=== PATIENT | male | born 1945 | race Caucasian/White ===

== ENCOUNTER 2018-06-12 14:29 | Inpatient (IN) | payer MEDICARE, BC ==
[~2018-06-12] VITALS: Ht 170.2 cm; Wt 52.5 kg
[~2018-06-12 14:29] MED LIST: ALBU8.5H5 INH; ALPR0.254 PO; AMIO200T PO; ATOR10TA9 PO; BUDE10.22 INH; CALC-666 PO; CALC1TAB76 PO; CEFD300C37 PO; CHOL5000 PO; CLOP75TA52 PO; DOXY100T PO; FOLI0.8T2 PO; HYDR12.517 PO; HYDR25TA6 PO; IBAN150T PO; LISI-167 PO; METO25TA35 PO; OMEP1CAP14 PO; PRED10TA PO; PRED50TA PO; PRED5TAB PO; TIOT18CA INH; TRAZ-137 PO
--- NOTE | 2018-06-12 14:44 | NUR ---
ASSUMED PT CARE. RECEIVED BEDSIDE REPORT FROM ANTHONY RENTERIA. PER REPORT PT WAS BIB AMBULANCE WITH C/O GLF.
--- NOTE | 2018-06-12 14:44 | NUR ---
73 Y/O MALE BIB AMBULANCE WITH C/O GLF. 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 I WAS WALKING TO THE CAR. WE WERE ON THE SECOND FLOOR AND THE FIRST ELEVATOR. I NEEDED TO STOP TO GET MORE AIR. WE WALKED A SHORT DISTANCE TO THE CAR THEN DOWN I WENT. 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 NO C/O N/V/D, CP
--- NOTE | 2018-06-12 14:55 | NUR ---
PT ALSO STATES "I DON'T REMEMBER IF I HIT MY HEAD OR NOT. I JUST WENT DOWN SO FAST." OBVIOUS ECCHYMOSIS ON BACK OF HEAD.
[2018-06-12 15:19] LABS: MEAN CORPUSCULAR HGB CONC 33.1 g/dL (33.2-36.2); MEAN CORPUSCULAR VOLUME 99.6 fL (81-97); MEAN PLATELET VOLUME 8.2 fL (7.4-10.4); PLATELET COUNT 280 x10^3/uL (130-400); RED BLOOD COUNT 4.32 x10^6/uL (4.38-5.82); RED CELL DISTRIBUTION WIDTH 16.9 % (9.4-14.8)
[2018-06-12 15:30] LABS: ALBUMIN 2.7 g/dL (3.4-5.0); ANION GAP 14 mmol/L (5-15); CALCIUM 7.7 mg/dL (8.5-10.1); CHLORIDE 98 mmol/L (98-107)
[2018-06-12 15:36] LABS: ALANINE AMINOTRANSFERASE 91 U/L (12-78); ALKALINE PHOSPHATASE 305 U/L (45-117); BILIRUBIN,TOTAL 1.4 mg/dL (0.2-1.0); CREATININE 1.95 mg/dL (0.7-1.3); TOTAL PROTEIN 6.3 g/dL (6.4-8.2)
[2018-06-12 15:38] LABS: TROPONIN I 0.022 ng/mL (0.000-0.045)
[2018-06-12 15:44] LABS: INTERNATIONAL NORMALIZED RATIO 1.56 (0.93-1.1); PROTHROMBIN TIME 16.3 Seconds (9.6-11.5)
[2018-06-12 15:59] LABS: MD YES
[2018-06-12 16:01] LABS: BAND#(MANUAL) 0.99 x10^3/uL; BANDS%(MANUAL) 7 % (0-7); LYMPH#(MANUAL) 1.41 x10^3/uL (1-3.4); LYMPHS% (MANUAL) 10 % (22-44); METAMYELOCYTES# (MANUAL) 0.14 x10^3/uL (0-0); METAMYELOCYTES% (MANUAL) 1 % (0-1); MONOS#(MANUAL) 0.42 x10^3/uL (0.3-2.7); MONOS% (MANUAL) 3 % (2-9); SEG#(MANUAL) 11.14 x10^3/uL (1.8-6.8); SEGS% (MANUAL) 79 % (42-75)
[2018-06-12 16:02] LABS: <PLATELET ESTIMATE> ADEQUATE; <PLT MORPHOLOGY> NORMAL PLT MORPH; ANISOCYTOSIS 1+; POLYCHROMASIA 1+; TOXIC GRAN 1+
--- NOTE | 2018-06-12 16:10 | NUR ---
PT TO IMAGING.
--- NOTE | 2018-06-12 16:10 | NUR ---
LATE ENTRY FOR 1600 PT RESTING ON [place]. NO ACUTE DISTRESS NOTED. NO NEEDS REQUESTED AT THIS TIME. VSS
--- NOTE | 2018-06-12 17:43 | NUR ---
TASK RN: PT REQUESTS WATER. DISCUSSED WITH TERESSA VIRK FOR PT TO HAVE PO FLUIDS
--- NOTE | 2018-06-12 18:59 | NUR ---
TASK RN: PT 02 SAT 82% ON 6L NC, OXY MASK 8L PLACED WITH EFFECT
[2018-06-12] MEDS ORDERED: PHARMACY MAY ADJ FOR RENAL FX MC PRN (19:00)
--- NOTE | 2018-06-12 19:09 | NUR ---
REPORT CALLED TO ANTHONY HUERTA. ALL QUESTIONS ANSWERED.
[2018-06-12] MEDS ORDERED: ALBUTEROL/IPRATROPIUM 2.5MG/0.5MG, 3 ML NPPB PRN (20:00)
[2018-06-12] MEDS: ALBUTEROL/IPRATROPIUM 2.5MG/0.5MG, 3 ML NPPB SCH (20:26)
[2018-06-12] MEDS: BUDESONIDE 0.5 MG/2 ML INHA NPPB SCH (20:26)
[2018-06-12] MEDS ORDERED: ALBUTEROL SULFATE 2.5 MG/3 ML NPPB PRN (20:30)
[2018-06-12] MEDS: SODIUM CHLORIDE 0.9% 1,000 ML IV SCH (20:50)
[2018-06-12] MEDS: CEFTRIAXONE PMX 1GM/50ML 50 ML IV SCH (20:50)
[2018-06-12] MEDS: TRAZODONE 100MG TABLET PO SCH (20:50)
[2018-06-12 21:00] VITALS: BP 114/58
[2018-06-12] MEDS ORDERED: METOPROLOL TARTRATE 25 MG TABLET PO SCH (21:00)
[2018-06-12] MEDS ORDERED: Budesonide/Formoterol Fumarate (Symbicort 80-4.5 Mcg Inhaler) INH SCH (21:00)
[2018-06-12] MEDS: AZITHROMYCIN 500 MG in SODIUM CHLORIDE 0.9% 250 ML IV SCH (21:30)
[2018-06-13 01:42] VITALS: BP 100/53
[2018-06-13] MEDS: ALBUTEROL/IPRATROPIUM 2.5MG/0.5MG, 3 ML NPPB SCH ×4 (01:45→19:57)
[2018-06-13 05:40] LABS: MEAN CORPUSCULAR HEMOGLOBIN 33.3 pg (27.5-34.5); MEAN CORPUSCULAR HGB CONC 33.2 g/dL (33.2-36.2); MEAN CORPUSCULAR VOLUME 100.5 fL (81-97); MEAN PLATELET VOLUME 8.4 fL (7.4-10.4); PLATELET COUNT 286 x10^3/uL (130-400); RED BLOOD COUNT 3.67 x10^6/uL (4.38-5.82); RED CELL DISTRIBUTION WIDTH 16.3 % (9.4-14.8)
[2018-06-13 05:43] LABS: ANION GAP 8 mmol/L (5-15); CALCIUM 7.3 mg/dL (8.5-10.1); CHLORIDE 100 mmol/L (98-107)
[2018-06-13 05:46] LABS: CREATININE 1.46 mg/dL (0.7-1.3)
[2018-06-13 06:20] LABS: BASOPHILS # (AUTO) 0.03 x10^3/uL (0-0.1); BASOPHILS % (AUTO) 0 % (0-1); EOSINOPHILS # (AUTO) 0.05 x10^3/uL (0-0.4); EOSINOPHILS % (AUTO) 0 % (1-7); LYMPHOCYTES # (AUTO) 1.51 x10^3/uL (1-3.4); LYMPHOCYTES % (AUTO) 11 % (22-44); MD SCAN; MONOCYTES % (AUTO) 3 % (2-9); NEUTROPHILS % (AUTO) 86 % (42-75)
[2018-06-13 07:00] VITALS: BP 105/50
[2018-06-13] MEDS: BUDESONIDE 0.5 MG/2 ML INHA NPPB SCH ×2 (07:26→19:57)
[2018-06-13 08:01] LABS: ALBUMIN 2.4 g/dL (3.4-5.0)
[2018-06-13 08:04] LABS: BILIRUBIN, DIRECT 0.4 mg/dL (0.1-0.2); BILIRUBIN,INDIRECT 0.6 mg/dL (0.0-2.0); TOTAL PROTEIN 5.6 g/dL (6.4-8.2)
[2018-06-13] MEDS ORDERED: Tiotropium Bromide** (Spiriva**) 18 MCG) INH SCH (09:00)
[2018-06-13] MEDS ORDERED: CLOPIDOGREL 75 MG TABLET PO SCH (09:00)
[2018-06-13] MEDS ORDERED: HYDROCHLOROTHIAZIDE 25 MG TABLET PO SCH (09:00)
[2018-06-13 09:21] LABS: RAPID INFLUENZA A Negative (Negative); RAPID INFLUENZA B Negative (Negative)
[2018-06-13] MEDS: POTASSIUM CHLORIDE 20 MEQ TAB.ER.PRT PO SCH ×2 (09:45→18:05)
[2018-06-13] MEDS: ATORVASTATIN 10 MG TABLET PO SCH (09:46)
[2018-06-13] MEDS: APIXABAN 5 MG TABLET PO SCH ×2 (09:46→19:50)
[2018-06-13] MEDS: FOLIC ACID 1 MG TABLET PO SCH (09:46)
[2018-06-13] MEDS: METOPROLOL TARTRATE 50 MG TABLET PO SCH (09:46)
[2018-06-13] MEDS: CALCIUM/VITAMIN D3 250-125 TABLET PO SCH (09:46)
[2018-06-13] MEDS: SODIUM CHLORIDE 0.9% 1,000 ML IV SCH (09:47)
[2018-06-13 12:20] VITALS: BP 109/61
[2018-06-13] MEDS ORDERED: BENZONATATE 100 MG CAPSULE PO PRN (18:30)
[2018-06-13] MEDS ORDERED: PROAIR PO PRN (18:30)
[2018-06-13 19:12] VITALS: BP 110/52
[2018-06-13] MEDS: TRAZODONE 100MG TABLET PO SCH (19:50)
[2018-06-13] MEDS: CEFTRIAXONE PMX 1GM/50ML 50 ML IV SCH (19:50)
[2018-06-13] MEDS: AZITHROMYCIN 500 MG in SODIUM CHLORIDE 0.9% 250 ML IV SCH (21:23)
[2018-06-14] MEDS: ALBUTEROL/IPRATROPIUM 2.5MG/0.5MG, 3 ML NPPB SCH ×4 (03:00→19:45)
[2018-06-14] MEDS: SODIUM CHLORIDE 0.9% 1,000 ML IV SCH (03:15)
[2018-06-14 03:49] VITALS: BP 116/58
[2018-06-14] MEDS: METOPROLOL TARTRATE 50 MG TABLET PO SCH (05:12)
[2018-06-14 05:35] LABS: BASOPHILS # (AUTO) 0.02 x10^3/uL (0-0.1); BASOPHILS % (AUTO) 0 % (0-1); EOSINOPHILS # (AUTO) 0.27 x10^3/uL (0-0.4); EOSINOPHILS % (AUTO) 2 % (1-7); LYMPHOCYTES # (AUTO) 0.88 x10^3/uL (1-3.4); LYMPHOCYTES % (AUTO) 8 % (22-44); MD NO; MEAN CORPUSCULAR HEMOGLOBIN 33.4 pg (27.5-34.5); MEAN CORPUSCULAR HGB CONC 33.1 g/dL (33.2-36.2); MEAN CORPUSCULAR VOLUME 100.8 fL (81-97); MEAN PLATELET VOLUME 8.2 fL (7.4-10.4); MONOCYTES # (AUTO) 0.33 x10^3/uL (0.2-0.8); MONOCYTES % (AUTO) 3 % (2-9); NEUTROPHILS # (AUTO) 9.94 x10^3/uL (1.8-6.8); NEUTROPHILS % (AUTO) 87 % (42-75); PLATELET COUNT 318 x10^3/uL (130-400); RED BLOOD COUNT 4.01 x10^6/uL (4.38-5.82); RED CELL DISTRIBUTION WIDTH 17.1 % (9.4-14.8)
[2018-06-14 05:41] LABS: ALBUMIN 2.3 g/dL (3.4-5.0); ANION GAP 7 mmol/L (5-15); CALCIUM 7.8 mg/dL (8.5-10.1); CHLORIDE 105 mmol/L (98-107)
[2018-06-14 05:46] LABS: ALANINE AMINOTRANSFERASE 62 U/L (12-78); ALKALINE PHOSPHATASE 238 U/L (45-117); CREATININE 1.12 mg/dL (0.7-1.3); TOTAL PROTEIN 5.9 g/dL (6.4-8.2)
[2018-06-14 07:00] VITALS: BP 121/62
[2018-06-14] MEDS: BUDESONIDE 0.5 MG/2 ML INHA NPPB SCH ×2 (07:27→19:45)
[2018-06-14] MEDS: FOLIC ACID 1 MG TABLET PO SCH (09:20)
[2018-06-14] MEDS: APIXABAN 5 MG TABLET PO SCH ×2 (09:20→20:22)
[2018-06-14] MEDS: DOXYCYCLINE 100 MG in DEXTROSE 5% 250 ML IV SCH ×2 (09:20→22:27)
[2018-06-14] MEDS: TAMSULOSIN 0.4 MG CAP.ER.24H PO SCH (09:20)
[2018-06-14] MEDS: CALCIUM/VITAMIN D3 250-125 TABLET PO SCH (09:20)
[2018-06-14] MEDS: ATORVASTATIN 10 MG TABLET PO SCH (09:20)
[2018-06-14] MEDS ORDERED: MAGNESIUM SULFATE PMX 2GM/50ML 50 ML IV ONE (10:30)
[2018-06-14 13:05] VITALS: BP 121/62
[2018-06-14 19:19] VITALS: BP 127/70
[2018-06-14] MEDS: CEFTRIAXONE PMX 1GM/50ML 50 ML IV SCH (20:22)
[2018-06-14] MEDS: TRAZODONE 100MG TABLET PO SCH (20:22)
[2018-06-15 01:32] VITALS: BP 120/64
[2018-06-15 05:33] LABS: BASOPHILS # (AUTO) 0.02 x10^3/uL (0-0.1); BASOPHILS % (AUTO) 0 % (0-1); EOSINOPHILS # (AUTO) 0.31 x10^3/uL (0-0.4); EOSINOPHILS % (AUTO) 3 % (1-7); LYMPHOCYTES # (AUTO) 1.33 x10^3/uL (1-3.4); LYMPHOCYTES % (AUTO) 12 % (22-44); MD NO; MEAN CORPUSCULAR HEMOGLOBIN 34.1 pg (27.5-34.5); MEAN CORPUSCULAR HGB CONC 33.7 g/dL (33.2-36.2); MEAN CORPUSCULAR VOLUME 101.1 fL (81-97); MEAN PLATELET VOLUME 7.9 fL (7.4-10.4); MONOCYTES # (AUTO) 0.52 x10^3/uL (0.2-0.8); MONOCYTES % (AUTO) 5 % (2-9); NEUTROPHILS # (AUTO) 8.61 x10^3/uL (1.8-6.8); NEUTROPHILS % (AUTO) 80 % (42-75); PLATELET COUNT 304 x10^3/uL (130-400); RED BLOOD COUNT 3.45 x10^6/uL (4.38-5.82); RED CELL DISTRIBUTION WIDTH 16.4 % (9.4-14.8)
[2018-06-15 05:34] LABS: ALANINE AMINOTRANSFERASE 50 U/L (12-78); ALBUMIN 2.1 g/dL (3.4-5.0); ANION GAP 8 mmol/L (5-15); CALCIUM 7.9 mg/dL (8.5-10.1); CHLORIDE 104 mmol/L (98-107)
[2018-06-15 05:36] LABS: ALKALINE PHOSPHATASE 187 U/L (45-117); BILIRUBIN,TOTAL 0.8 mg/dL (0.2-1.0); CREATININE 1.05 mg/dL (0.7-1.3); TOTAL PROTEIN 5.2 g/dL (6.4-8.2)
[2018-06-15] MEDS: METOPROLOL TARTRATE 50 MG TABLET PO SCH (05:39)
[2018-06-15] MEDS: ALBUTEROL/IPRATROPIUM 2.5MG/0.5MG, 3 ML NPPB SCH ×4 (07:00→20:44)
[2018-06-15 07:15] VITALS: BP 116/63
[2018-06-15] MEDS: BUDESONIDE 0.5 MG/2 ML INHA NPPB SCH ×2 (07:18→20:44)
[2018-06-15] MEDS: TAMSULOSIN 0.4 MG CAP.ER.24H PO SCH (07:50)
[2018-06-15] MEDS: ATORVASTATIN 10 MG TABLET PO SCH (07:50)
[2018-06-15] MEDS: FOLIC ACID 1 MG TABLET PO SCH (07:50)
[2018-06-15] MEDS: APIXABAN 5 MG TABLET PO SCH ×2 (07:51→20:13)
[2018-06-15] MEDS: CALCIUM/VITAMIN D3 250-125 TABLET PO SCH (07:51)
[2018-06-15] MEDS: DOXYCYCLINE 100 MG in DEXTROSE 5% 250 ML IV SCH ×2 (09:23→21:39)
[2018-06-15] MEDS: methylPREDNISolone SOD SUCC 125 MG/2 ML IVPush SCH ×2 (10:41→22:40)
[2018-06-15 13:35] VITALS: BP 127/63
[2018-06-15] MEDS: ACETYLCYSTEINE 20%, 4ML NPPB SCH ×2 (14:12→20:45)
[2018-06-15 19:14] VITALS: BP 134/72
[2018-06-15] MEDS: GUAIFENESIN ER 600 MG TABLET PO SCH (20:13)
[2018-06-15] MEDS: CEFTRIAXONE PMX 1GM/50ML 50 ML IV SCH (20:13)
[2018-06-15] MEDS: TRAZODONE 100MG TABLET PO SCH (20:13)
[2018-06-16 00:50] VITALS: BP 132/69
[2018-06-16 05:07] VITALS: BP 142/68
[2018-06-16] MEDS: METOPROLOL TARTRATE 50 MG TABLET PO SCH (05:09)
[2018-06-16] MEDS: ACETYLCYSTEINE 20%, 4ML NPPB SCH ×4 (07:00→20:23)
[2018-06-16] MEDS: ALBUTEROL/IPRATROPIUM 2.5MG/0.5MG, 3 ML NPPB SCH ×4 (07:00→20:23)
[2018-06-16 07:05] VITALS: BP 159/74
[2018-06-16] MEDS: BUDESONIDE 0.5 MG/2 ML INHA NPPB SCH ×2 (07:10→20:23)
[2018-06-16] MEDS: FOLIC ACID 1 MG TABLET PO SCH (08:30)
[2018-06-16] MEDS: ATORVASTATIN 10 MG TABLET PO SCH (08:30)
[2018-06-16] MEDS: APIXABAN 5 MG TABLET PO SCH ×2 (08:30→20:57)
[2018-06-16] MEDS: methylPREDNISolone SOD SUCC 125 MG/2 ML IVPush SCH ×2 (08:30→17:40)
[2018-06-16] MEDS: TAMSULOSIN 0.4 MG CAP.ER.24H PO SCH (08:31)
[2018-06-16] MEDS: POTASSIUM CHLORIDE 20 MEQ TAB.ER.PRT PO SCH (08:31)
[2018-06-16] MEDS: GUAIFENESIN ER 600 MG TABLET PO SCH ×2 (08:31→20:58)
[2018-06-16] MEDS: CALCIUM/VITAMIN D3 250-125 TABLET PO SCH (08:31)
[2018-06-16] MEDS ORDERED: FUROSEMIDE 20 MG/2 ML IV SCH (09:00)
[2018-06-16] MEDS: DOXYCYCLINE 100 MG in DEXTROSE 5% 250 ML IV SCH ×2 (09:58→21:45)
[2018-06-16 19:47] VITALS: BP 147/72
[2018-06-16] MEDS: TRAZODONE 100MG TABLET PO SCH (20:58)
[2018-06-16] MEDS: CEFTRIAXONE PMX 1GM/50ML 50 ML IV SCH (20:58)
[2018-06-16] MEDS: FUROSEMIDE 20 MG/2 ML IV SCH (20:58)
[2018-06-17] MEDS: methylPREDNISolone SOD SUCC 125 MG/2 ML IVPush SCH ×3 (00:19→16:00)
[2018-06-17 02:17] VITALS: BP 135/70
[2018-06-17 05:30] VITALS: BP 139/69
[2018-06-17] MEDS: METOPROLOL TARTRATE 50 MG TABLET PO SCH (05:32)
[2018-06-17 05:54] LABS: CHLORIDE 100 mmol/L (98-107)
[2018-06-17 06:00] LABS: ALANINE AMINOTRANSFERASE 62 U/L (12-78); ALBUMIN 2.6 g/dL (3.4-5.0); ALKALINE PHOSPHATASE 198 U/L (45-117); ANION GAP 8 mmol/L (5-15); BILIRUBIN,TOTAL 0.9 mg/dL (0.2-1.0); CREATININE 1.15 mg/dL (0.7-1.3); TOTAL PROTEIN 6.2 g/dL (6.4-8.2)
[2018-06-17 06:03] LABS: BASOPHILS % (AUTO) 0 % (0-1); EOSINOPHILS # (AUTO) 0.08 x10^3/uL (0-0.4); EOSINOPHILS % (AUTO) 1 % (1-7); LYMPHOCYTES # (AUTO) 0.85 x10^3/uL (1-3.4); LYMPHOCYTES % (AUTO) 9 % (22-44); MD NO; MEAN CORPUSCULAR HGB CONC 33.6 g/dL (33.2-36.2); MEAN CORPUSCULAR VOLUME 101.3 fL (81-97); MEAN PLATELET VOLUME 7.9 fL (7.4-10.4); MONOCYTES # (AUTO) 0.16 x10^3/uL (0.2-0.8); MONOCYTES % (AUTO) 2 % (2-9); NEUTROPHILS # (AUTO) 8.71 x10^3/uL (1.8-6.8); NEUTROPHILS % (AUTO) 89 % (42-75); PLATELET COUNT 367 x10^3/uL (130-400); RED BLOOD COUNT 4.15 x10^6/uL (4.38-5.82); RED CELL DISTRIBUTION WIDTH 16.8 % (9.4-14.8)
[2018-06-17] MEDS: ALBUTEROL/IPRATROPIUM 2.5MG/0.5MG, 3 ML NPPB SCH ×4 (06:32→19:36)
[2018-06-17] MEDS: ACETYLCYSTEINE 20%, 4ML NPPB SCH ×4 (06:33→19:36)
[2018-06-17] MEDS: BUDESONIDE 0.5 MG/2 ML INHA NPPB SCH ×2 (06:33→19:36)
[2018-06-17 07:40] VITALS: BP 133/70
[2018-06-17] MEDS: DOXYCYCLINE 100 MG in DEXTROSE 5% 250 ML IV SCH ×2 (09:00→21:47)
[2018-06-17] MEDS: POTASSIUM CHLORIDE 20 MEQ TAB.ER.PRT PO SCH (09:01)
[2018-06-17] MEDS: FUROSEMIDE 20 MG/2 ML IV SCH ×2 (09:01→20:54)
[2018-06-17] MEDS: APIXABAN 5 MG TABLET PO SCH ×2 (09:01→20:54)
[2018-06-17] MEDS: FOLIC ACID 1 MG TABLET PO SCH (09:01)
[2018-06-17] MEDS: CALCIUM/VITAMIN D3 250-125 TABLET PO SCH (09:01)
[2018-06-17] MEDS: GUAIFENESIN ER 600 MG TABLET PO SCH ×2 (09:01→20:54)
[2018-06-17] MEDS: TAMSULOSIN 0.4 MG CAP.ER.24H PO SCH (09:02)
[2018-06-17] MEDS: ATORVASTATIN 10 MG TABLET PO SCH (09:02)
[2018-06-17 13:44] VITALS: BP 107/57
[2018-06-17 19:51] VITALS: BP 105/57
[2018-06-17] MEDS: CEFTRIAXONE PMX 1GM/50ML 50 ML IV SCH (20:54)
[2018-06-17] MEDS: TRAZODONE 100MG TABLET PO SCH (20:54)
[2018-06-18 01:19] VITALS: BP 122/61
[2018-06-18] MEDS: methylPREDNISolone SOD SUCC 125 MG/2 ML IVPush SCH ×3 (01:30→17:34)
[2018-06-18 05:35] VITALS: BP 103/54
[2018-06-18] MEDS: METOPROLOL TARTRATE 50 MG TABLET PO SCH (05:35)
[2018-06-18] MEDS: ACETYLCYSTEINE 20%, 4ML NPPB SCH ×3 (07:00→14:18)
[2018-06-18] MEDS: ALBUTEROL/IPRATROPIUM 2.5MG/0.5MG, 3 ML NPPB SCH ×4 (07:00→19:28)
[2018-06-18] MEDS: BUDESONIDE 0.5 MG/2 ML INHA NPPB SCH ×2 (07:23→19:29)
[2018-06-18 08:04] VITALS: BP 102/41
[2018-06-18] MEDS: APIXABAN 5 MG TABLET PO SCH ×2 (08:53→20:56)
[2018-06-18] MEDS: ATORVASTATIN 10 MG TABLET PO SCH (08:53)
[2018-06-18] MEDS: POTASSIUM CHLORIDE 20 MEQ TAB.ER.PRT PO SCH (08:53)
[2018-06-18] MEDS: CALCIUM/VITAMIN D3 250-125 TABLET PO SCH (08:53)
[2018-06-18] MEDS: GUAIFENESIN ER 600 MG TABLET PO SCH ×2 (08:53→20:56)
[2018-06-18] MEDS: FOLIC ACID 1 MG TABLET PO SCH (08:53)
[2018-06-18] MEDS: TAMSULOSIN 0.4 MG CAP.ER.24H PO SCH (08:53)
[2018-06-18] MEDS: DOXYCYCLINE 100 MG in DEXTROSE 5% 250 ML IV SCH ×2 (08:53→22:08)
[2018-06-18] MEDS: FUROSEMIDE 20 MG/2 ML IV SCH ×2 (08:54→20:56)
[2018-06-18 15:54] VITALS: BP 101/58
[2018-06-18 19:56] VITALS: BP 102/43
[2018-06-18] MEDS: TRAZODONE 100MG TABLET PO SCH (20:56)
[2018-06-18] MEDS: CEFTRIAXONE PMX 1GM/50ML 50 ML IV SCH (20:56)
[2018-06-19 00:34] VITALS: BP 123/66
[2018-06-19] MEDS: methylPREDNISolone SOD SUCC 125 MG/2 ML IVPush SCH ×3 (00:37→16:27)
[2018-06-19] MEDS: METOPROLOL TARTRATE 50 MG TABLET PO SCH (06:29)
[2018-06-19] MEDS: ALBUTEROL/IPRATROPIUM 2.5MG/0.5MG, 3 ML NPPB SCH ×4 (07:00→20:55)
[2018-06-19 07:16] VITALS: BP 127/63
[2018-06-19] MEDS: BUDESONIDE 0.5 MG/2 ML INHA NPPB SCH ×2 (07:47→20:55)
[2018-06-19] MEDS: POTASSIUM CHLORIDE 20 MEQ TAB.ER.PRT PO SCH (09:00)
[2018-06-19] MEDS: GUAIFENESIN ER 600 MG TABLET PO SCH ×2 (09:00→21:41)
[2018-06-19] MEDS: DOXYCYCLINE 100MG TABLET PO SCH ×2 (09:00→21:41)
[2018-06-19] MEDS: ATORVASTATIN 10 MG TABLET PO SCH (09:00)
[2018-06-19] MEDS: APIXABAN 5 MG TABLET PO SCH ×2 (09:00→21:41)
[2018-06-19] MEDS: SULFAMETH./TRIMETHOPRIM DS 800MG/160MG TABLET PO SCH ×2 (09:00→21:41)
[2018-06-19] MEDS: AMOXICILLIN/CLAV 875-125MG TABLET PO SCH ×2 (09:00→21:41)
[2018-06-19] MEDS: TAMSULOSIN 0.4 MG CAP.ER.24H PO SCH (09:01)
[2018-06-19] MEDS: FUROSEMIDE 20 MG/2 ML IV SCH ×2 (09:01→21:42)
[2018-06-19] MEDS: FOLIC ACID 1 MG TABLET PO SCH (09:01)
[2018-06-19] MEDS: CALCIUM/VITAMIN D3 250-125 TABLET PO SCH (09:01)
[2018-06-19 12:28] VITALS: BP 116/55
[2018-06-19 20:36] VITALS: BP 130/66
[2018-06-19] MEDS: TRAZODONE 100MG TABLET PO SCH (21:41)
[2018-06-20] MEDS: methylPREDNISolone SOD SUCC 125 MG/2 ML IVPush SCH ×4 (00:31→23:50)
[2018-06-20 01:58] VITALS: BP 124/62
[2018-06-20 06:14] VITALS: BP 112/74
[2018-06-20] MEDS: METOPROLOL TARTRATE 50 MG TABLET PO SCH (06:15)
[2018-06-20] MEDS: BUDESONIDE 0.5 MG/2 ML INHA NPPB SCH ×2 (07:38→20:23)
[2018-06-20] MEDS: ALBUTEROL/IPRATROPIUM 2.5MG/0.5MG, 3 ML NPPB SCH ×4 (07:38→20:00)
[2018-06-20 08:26] VITALS: BP 121/52
[2018-06-20] MEDS: POTASSIUM CHLORIDE 20 MEQ TAB.ER.PRT PO SCH (09:03)
[2018-06-20] MEDS: FUROSEMIDE 20 MG/2 ML IV SCH ×2 (09:03→21:33)
[2018-06-20] MEDS: AMOXICILLIN/CLAV 875-125MG TABLET PO SCH ×2 (09:03→22:00)
[2018-06-20] MEDS: ATORVASTATIN 10 MG TABLET PO SCH (09:04)
[2018-06-20] MEDS: APIXABAN 5 MG TABLET PO SCH ×2 (09:04→21:32)
[2018-06-20] MEDS: TAMSULOSIN 0.4 MG CAP.ER.24H PO SCH (09:04)
[2018-06-20] MEDS: FOLIC ACID 1 MG TABLET PO SCH (09:04)
[2018-06-20] MEDS: DOXYCYCLINE 100MG TABLET PO SCH ×2 (09:04→21:32)
[2018-06-20] MEDS: GUAIFENESIN ER 600 MG TABLET PO SCH ×2 (09:04→21:32)
[2018-06-20] MEDS: SULFAMETH./TRIMETHOPRIM DS 800MG/160MG TABLET PO SCH ×2 (09:04→21:32)
[2018-06-20] MEDS: CALCIUM/VITAMIN D3 250-125 TABLET PO SCH (09:04)
[2018-06-20 13:06] VITALS: BP 116/63
[2018-06-20] MEDS: TRAZODONE 100MG TABLET PO SCH (21:32)
[2018-06-20 21:53] VITALS: BP 122/43
[2018-06-21 02:19] VITALS: BP 131/67
[2018-06-21] MEDS: METOPROLOL TARTRATE 50 MG TABLET PO SCH (05:42)
[2018-06-21 07:25] VITALS: BP 123/59
[2018-06-21] MEDS: ALBUTEROL/IPRATROPIUM 2.5MG/0.5MG, 3 ML NPPB SCH ×4 (08:11→19:25)
[2018-06-21] MEDS: BUDESONIDE 0.5 MG/2 ML INHA NPPB SCH ×2 (08:11→19:25)
[2018-06-21] MEDS: FUROSEMIDE 20 MG/2 ML IV SCH (09:44)
[2018-06-21] MEDS: AMOXICILLIN/CLAV 875-125MG TABLET PO SCH ×2 (09:44→21:40)
[2018-06-21] MEDS: FOLIC ACID 1 MG TABLET PO SCH (09:44)
[2018-06-21] MEDS: POTASSIUM CHLORIDE 20 MEQ TAB.ER.PRT PO SCH (09:44)
[2018-06-21] MEDS: TAMSULOSIN 0.4 MG CAP.ER.24H PO SCH (09:44)
[2018-06-21] MEDS: methylPREDNISolone SOD SUCC 125 MG/2 ML IVPush SCH (09:44)
[2018-06-21] MEDS: APIXABAN 5 MG TABLET PO SCH ×2 (09:44→21:40)
[2018-06-21] MEDS: GUAIFENESIN ER 600 MG TABLET PO SCH ×2 (09:45→21:40)
[2018-06-21] MEDS: DOXYCYCLINE 100MG TABLET PO SCH ×2 (09:45→21:40)
[2018-06-21] MEDS: ATORVASTATIN 10 MG TABLET PO SCH (09:45)
[2018-06-21] MEDS: CALCIUM/VITAMIN D3 250-125 TABLET PO SCH (09:45)
[2018-06-21] MEDS: SULFAMETH./TRIMETHOPRIM DS 800MG/160MG TABLET PO SCH ×2 (09:45→21:40)
[2018-06-21 14:00] VITALS: BP 93/60
[2018-06-21 15:02] VITALS: BP 113/57
[2018-06-21] MEDS: TRAZODONE 100MG TABLET PO SCH (21:41)
[2018-06-21 21:59] VITALS: BP 104/46
[2018-06-22 03:59] VITALS: BP 114/62
[2018-06-22 05:20] VITALS: BP 116/60
[2018-06-22] MEDS: METOPROLOL TARTRATE 50 MG TABLET PO SCH (05:22)
[2018-06-22 05:24] LABS: BASOPHILS % (AUTO) 0 % (0-1); EOSINOPHILS # (AUTO) 0.15 x10^3/uL (0-0.4); EOSINOPHILS % (AUTO) 2 % (1-7); LYMPHOCYTES # (AUTO) 0.69 x10^3/uL (1-3.4); LYMPHOCYTES % (AUTO) 8 % (22-44); MD NO; MEAN CORPUSCULAR HEMOGLOBIN 33.8 pg (27.5-34.5); MEAN CORPUSCULAR HGB CONC 33.5 g/dL (33.2-36.2); MEAN CORPUSCULAR VOLUME 100.9 fL (81-97); MEAN PLATELET VOLUME 8.2 fL (7.4-10.4); MONOCYTES # (AUTO) 0.33 x10^3/uL (0.2-0.8); MONOCYTES % (AUTO) 4 % (2-9); NEUTROPHILS % (AUTO) 87 % (42-75); PLATELET COUNT 322 x10^3/uL (130-400); RED BLOOD COUNT 3.83 x10^6/uL (4.38-5.82); RED CELL DISTRIBUTION WIDTH 16.1 % (9.4-14.8)
[2018-06-22 05:31] LABS: CHLORIDE 98 mmol/L (98-107)
[2018-06-22 05:39] LABS: ALANINE AMINOTRANSFERASE 62 U/L (12-78); ALBUMIN 2.6 g/dL (3.4-5.0); ALKALINE PHOSPHATASE 122 U/L (45-117); ANION GAP 5 mmol/L (5-15); BILIRUBIN,TOTAL 0.9 mg/dL (0.2-1.0); CALCIUM 7.2 mg/dL (8.5-10.1); CREATININE 1.26 mg/dL (0.7-1.3); TOTAL PROTEIN 5.5 g/dL (6.4-8.2)
[2018-06-22 08:04] VITALS: BP 113/50
[2018-06-22] MEDS: DOXYCYCLINE 100MG TABLET PO SCH ×2 (08:32→19:53)
[2018-06-22] MEDS: SULFAMETH./TRIMETHOPRIM DS 800MG/160MG TABLET PO SCH ×2 (08:32→19:53)
[2018-06-22] MEDS: POTASSIUM CHLORIDE 20 MEQ TAB.ER.PRT PO SCH (08:32)
[2018-06-22] MEDS: GUAIFENESIN ER 600 MG TABLET PO SCH ×2 (08:32→19:53)
[2018-06-22] MEDS: FOLIC ACID 1 MG TABLET PO SCH (08:32)
[2018-06-22] MEDS: AMOXICILLIN/CLAV 875-125MG TABLET PO SCH ×2 (08:32→19:53)
[2018-06-22] MEDS: APIXABAN 5 MG TABLET PO SCH ×2 (08:32→19:53)
[2018-06-22] MEDS: TAMSULOSIN 0.4 MG CAP.ER.24H PO SCH (08:32)
[2018-06-22] MEDS: FUROSEMIDE 40 MG TABLET PO SCH (08:33)
[2018-06-22] MEDS: CALCIUM/VITAMIN D3 250-125 TABLET PO SCH (08:33)
[2018-06-22] MEDS: BUDESONIDE 0.5 MG/2 ML INHA NPPB SCH ×2 (08:51→19:36)
[2018-06-22] MEDS: ALBUTEROL/IPRATROPIUM 2.5MG/0.5MG, 3 ML NPPB SCH ×4 (08:51→19:36)
[2018-06-22 14:33] VITALS: BP 117/58
[2018-06-22 18:54] VITALS: BP 95/56
[2018-06-22] MEDS ORDERED: TEMPLATE NON-FORMULARY MED. (Ibandronate Sodium** (Boniva**) 1 TAB) PO SCH (19:00)
[2018-06-22] MEDS: ATORVASTATIN 10 MG TABLET PO SCH (19:53)
[2018-06-22] MEDS: TRAZODONE 100MG TABLET PO SCH (19:53)
[2018-06-23 01:06] VITALS: BP 106/54
[2018-06-23 05:20] VITALS: BP 116/57
[2018-06-23] MEDS: METOPROLOL TARTRATE 50 MG TABLET PO SCH (05:21)
[2018-06-23] MEDS: ALBUTEROL/IPRATROPIUM 2.5MG/0.5MG, 3 ML NPPB SCH ×4 (06:35→19:35)
[2018-06-23] MEDS: BUDESONIDE 0.5 MG/2 ML INHA NPPB SCH ×2 (06:35→19:35)
[2018-06-23 07:11] VITALS: BP 105/55
[2018-06-23] MEDS: CALCIUM CARBONATE 500 MG TABLET PO SCH ×2 (09:51→21:17)
[2018-06-23] MEDS: CALCIUM/VITAMIN D3 250-125 TABLET PO SCH (09:52)
[2018-06-23] MEDS: AMOXICILLIN/CLAV 875-125MG TABLET PO SCH ×2 (09:52→21:17)
[2018-06-23] MEDS: TAMSULOSIN 0.4 MG CAP.ER.24H PO SCH (09:52)
[2018-06-23] MEDS: APIXABAN 5 MG TABLET PO SCH ×2 (09:53→21:17)
[2018-06-23] MEDS: GUAIFENESIN ER 600 MG TABLET PO SCH ×2 (09:53→21:17)
[2018-06-23] MEDS: POTASSIUM CHLORIDE 20 MEQ TAB.ER.PRT PO SCH (09:53)
[2018-06-23] MEDS: DOXYCYCLINE 100MG TABLET PO SCH ×2 (09:54→21:17)
[2018-06-23] MEDS: FUROSEMIDE 40 MG TABLET PO SCH (09:54)
[2018-06-23] MEDS: SULFAMETH./TRIMETHOPRIM DS 800MG/160MG TABLET PO SCH ×2 (09:54→21:18)
[2018-06-23] MEDS: FOLIC ACID 1 MG TABLET PO SCH (09:55)
[2018-06-23] MEDS ORDERED: SENNA/DOCUSATE TABLET PO PRN (10:00)
[2018-06-23 13:22] VITALS: BP 108/47
[2018-06-23 19:02] VITALS: BP 103/54
[2018-06-23] MEDS: ATORVASTATIN 10 MG TABLET PO SCH (21:17)
[2018-06-23] MEDS: TRAZODONE 100MG TABLET PO SCH (21:18)
[2018-06-24 01:03] VITALS: BP 132/71
[2018-06-24 05:39] VITALS: BP 104/59
[2018-06-24] MEDS: METOPROLOL TARTRATE 50 MG TABLET PO SCH (05:40)
[2018-06-24] MEDS: ALBUTEROL/IPRATROPIUM 2.5MG/0.5MG, 3 ML NPPB SCH ×4 (07:00→20:48)
[2018-06-24 07:39] VITALS: BP 123/60
[2018-06-24] MEDS: BUDESONIDE 0.5 MG/2 ML INHA NPPB SCH ×2 (09:00→20:48)
[2018-06-24] MEDS: CALCIUM CARBONATE 500 MG TABLET PO SCH ×2 (10:54→21:42)
[2018-06-24] MEDS: CALCIUM/VITAMIN D3 250-125 TABLET PO SCH (10:54)
[2018-06-24] MEDS: DOXYCYCLINE 100MG TABLET PO SCH ×2 (10:54→21:42)
[2018-06-24] MEDS: AMOXICILLIN/CLAV 875-125MG TABLET PO SCH ×2 (10:54→21:42)
[2018-06-24] MEDS: POTASSIUM CHLORIDE 20 MEQ TAB.ER.PRT PO SCH (10:55)
[2018-06-24] MEDS: GUAIFENESIN ER 600 MG TABLET PO SCH ×2 (10:55→21:42)
[2018-06-24] MEDS: TAMSULOSIN 0.4 MG CAP.ER.24H PO SCH (10:55)
[2018-06-24] MEDS: SULFAMETH./TRIMETHOPRIM DS 800MG/160MG TABLET PO SCH ×2 (10:55→21:42)
[2018-06-24] MEDS: FUROSEMIDE 40 MG TABLET PO SCH (10:55)
[2018-06-24] MEDS: APIXABAN 5 MG TABLET PO SCH ×2 (10:55→21:42)
[2018-06-24] MEDS: FOLIC ACID 1 MG TABLET PO SCH (10:55)
[2018-06-24 14:23] VITALS: BP 117/56
[2018-06-24 19:47] VITALS: BP 117/55
[2018-06-24] MEDS: ATORVASTATIN 10 MG TABLET PO SCH (21:42)
[2018-06-24] MEDS: TRAZODONE 100MG TABLET PO SCH (21:42)
[2018-06-25 00:54] VITALS: BP 92/45
[2018-06-25 05:33] VITALS: BP 128/64
[2018-06-25] MEDS: METOPROLOL TARTRATE 50 MG TABLET PO SCH (05:35)
[2018-06-25] MEDS: ALBUTEROL/IPRATROPIUM 2.5MG/0.5MG, 3 ML NPPB SCH ×4 (07:00→19:48)
[2018-06-25 08:22] VITALS: BP 122/55
[2018-06-25] MEDS: FUROSEMIDE 40 MG TABLET PO SCH (09:44)
[2018-06-25] MEDS: DOXYCYCLINE 100MG TABLET PO SCH ×2 (09:44→20:08)
[2018-06-25] MEDS: AMOXICILLIN/CLAV 875-125MG TABLET PO SCH ×2 (09:44→20:08)
[2018-06-25] MEDS: POTASSIUM CHLORIDE 20 MEQ TAB.ER.PRT PO SCH (09:44)
[2018-06-25] MEDS: GUAIFENESIN ER 600 MG TABLET PO SCH ×2 (09:44→20:08)
[2018-06-25] MEDS: APIXABAN 5 MG TABLET PO SCH ×2 (09:44→20:09)
[2018-06-25] MEDS: CALCIUM CARBONATE 500 MG TABLET PO SCH ×2 (09:44→20:08)
[2018-06-25] MEDS: FOLIC ACID 1 MG TABLET PO SCH (09:52)
[2018-06-25] MEDS: SULFAMETH./TRIMETHOPRIM DS 800MG/160MG TABLET PO SCH ×2 (09:53→20:08)
[2018-06-25] MEDS: TAMSULOSIN 0.4 MG CAP.ER.24H PO SCH (09:53)
[2018-06-25] MEDS: CALCIUM/VITAMIN D3 250-125 TABLET PO SCH (09:53)
[2018-06-25] MEDS: BUDESONIDE 0.5 MG/2 ML INHA NPPB SCH ×2 (11:00→19:48)
[2018-06-25 12:16] VITALS: BP 111/50
[2018-06-25 20:00] VITALS: BP 90/40
[2018-06-25] MEDS: TRAZODONE 100MG TABLET PO SCH (22:16)
[2018-06-25] MEDS: ATORVASTATIN 10 MG TABLET PO SCH (22:16)
[2018-06-26 00:30] VITALS: BP 103/57
[2018-06-26] MEDS: METOPROLOL TARTRATE 50 MG TABLET PO SCH (05:23)
[2018-06-26 06:27] VITALS: BP 103/58
[2018-06-26] MEDS: ALBUTEROL/IPRATROPIUM 2.5MG/0.5MG, 3 ML NPPB SCH ×4 (07:00→20:00)
[2018-06-26] MEDS: BUDESONIDE 0.5 MG/2 ML INHA NPPB SCH ×2 (07:10→20:03)
[2018-06-26] MEDS: TAMSULOSIN 0.4 MG CAP.ER.24H PO SCH (10:07)
[2018-06-26] MEDS: FUROSEMIDE 40 MG TABLET PO SCH (10:07)
[2018-06-26] MEDS: POTASSIUM CHLORIDE 20 MEQ TAB.ER.PRT PO SCH (10:07)
[2018-06-26] MEDS: CALCIUM/VITAMIN D3 250-125 TABLET PO SCH (10:07)
[2018-06-26] MEDS: CALCIUM CARBONATE 500 MG TABLET PO SCH ×2 (10:07→21:08)
[2018-06-26] MEDS: SULFAMETH./TRIMETHOPRIM DS 800MG/160MG TABLET PO SCH (10:08)
[2018-06-26] MEDS: FOLIC ACID 1 MG TABLET PO SCH (10:08)
[2018-06-26] MEDS: GUAIFENESIN ER 600 MG TABLET PO SCH ×2 (10:08→21:07)
[2018-06-26] MEDS: ATORVASTATIN 10 MG TABLET PO SCH (10:08)
[2018-06-26] MEDS: APIXABAN 5 MG TABLET PO SCH ×2 (10:08→21:08)
[2018-06-26 12:01] VITALS: BP 92/43
[2018-06-26] MEDS ORDERED: SODIUM CHLORIDE 0.9%, 500ML IVBOLUS ONE ×2 (12:30→14:30)
[2018-06-26 13:32] VITALS: BP 92/48
[2018-06-26] MEDS ORDERED: VANCOMYCIN PER PHARMACY MC PRN (16:30)
[2018-06-26 16:44] LABS: MEAN CORPUSCULAR HEMOGLOBIN 33.5 pg (27.5-34.5); MEAN CORPUSCULAR HGB CONC 33.2 g/dL (33.2-36.2); MEAN CORPUSCULAR VOLUME 100.8 fL (81-97); MEAN PLATELET VOLUME 9.2 fL (7.4-10.4); PLATELET COUNT 238 x10^3/uL (130-400); RED BLOOD COUNT 4.41 x10^6/uL (4.38-5.82); RED CELL DISTRIBUTION WIDTH 15.3 % (9.4-14.8)
[2018-06-26 16:49] LABS: ALANINE AMINOTRANSFERASE 86 U/L (12-78); ALBUMIN 2.8 g/dL (3.4-5.0); ANION GAP 10 mmol/L (5-15); CALCIUM 8.7 mg/dL (8.5-10.1); CHLORIDE 95 mmol/L (98-107); CREATININE 1.45 mg/dL (0.7-1.3)
[2018-06-26 16:51] LABS: ALKALINE PHOSPHATASE 123 U/L (45-117); BILIRUBIN,TOTAL 0.8 mg/dL (0.2-1.0); TOTAL PROTEIN 5.7 g/dL (6.4-8.2)
[2018-06-26] MEDS ORDERED: VANCOMYCIN PMX 1GM/200ML 200 ML IV SCH (17:00)
[2018-06-26] MEDS ORDERED: PHARMACOKINETIC MONITORING MC PRN (17:00)
[2018-06-26] MEDS: PIPERACILLIN/TAZO/PMX 3.375GM 50 ML IV SCH ×2 (17:05→22:59)
[2018-06-26 17:21] LABS: MD YES
[2018-06-26 17:22] LABS: LYMPH#(MANUAL) 1.26 x10^3/uL (1-3.4); LYMPHS% (MANUAL) 8 % (22-44); MONOS#(MANUAL) 0.16 x10^3/uL (0.3-2.7); MONOS% (MANUAL) 1 % (2-9); SEG#(MANUAL) 14.29 x10^3/uL (1.8-6.8); SEGS% (MANUAL) 91 % (42-75)
[2018-06-26 17:23] LABS: <RBC MORPHOLOGY> NORMAL
[2018-06-26 17:24] LABS: <PLATELET ESTIMATE> ADEQUATE; <PLT MORPHOLOGY> NORMAL PLT MORPH
[2018-06-26 17:25] LABS: HEMOGRAM NOTE RECHECKED
[2018-06-26] MEDS ORDERED: SODIUM CHLORIDE 0.9% 500 ML IV SCH (20:00)
[2018-06-26 20:57] VITALS: BP 91/48
[2018-06-26] MEDS: TRAZODONE 100MG TABLET PO SCH (21:08)
[2018-06-27 02:30] VITALS: BP 91/49
[2018-06-27] MEDS: PIPERACILLIN/TAZO/PMX 3.375GM 50 ML IV SCH ×4 (05:11→23:03)
[2018-06-27] MEDS: BUDESONIDE 0.5 MG/2 ML INHA NPPB SCH ×2 (06:39→20:05)
[2018-06-27] MEDS: ALBUTEROL/IPRATROPIUM 2.5MG/0.5MG, 3 ML NPPB SCH ×4 (06:39→20:05)
[2018-06-27 07:05] VITALS: BP 105/49
[2018-06-27] MEDS: FOLIC ACID 1 MG TABLET PO SCH (08:17)
[2018-06-27] MEDS: APIXABAN 5 MG TABLET PO SCH ×2 (08:17→20:50)
[2018-06-27] MEDS: SODIUM CHLORIDE 0.9% 1,000 ML IV SCH ×2 (08:17→23:04)
[2018-06-27] MEDS: ATORVASTATIN 10 MG TABLET PO SCH (08:18)
[2018-06-27] MEDS: GUAIFENESIN ER 600 MG TABLET PO SCH ×2 (08:18→20:50)
[2018-06-27] MEDS: TAMSULOSIN 0.4 MG CAP.ER.24H PO SCH (08:18)
[2018-06-27] MEDS: CALCIUM/VITAMIN D3 250-125 TABLET PO SCH (08:18)
[2018-06-27] MEDS: POTASSIUM CHLORIDE 20 MEQ TAB.ER.PRT PO SCH (08:18)
[2018-06-27 13:25] VITALS: BP 97/46
[2018-06-27] MEDS: LINEZOLID PMX 600MG/300ML 300 ML IV SCH (15:56)
[2018-06-27 16:48] LABS: MICROSCOPIC NOT IND
[2018-06-27 18:51] VITALS: BP 104/55
[2018-06-27] MEDS: TRAZODONE 100MG TABLET PO SCH (20:50)
[2018-06-28 01:38] VITALS: BP 101/50
[2018-06-28] MEDS: LINEZOLID PMX 600MG/300ML 300 ML IV SCH ×2 (01:42→13:47)
[2018-06-28] MEDS: PIPERACILLIN/TAZO/PMX 3.375GM 50 ML IV SCH ×4 (04:34→22:22)
[2018-06-28 06:21] LABS: MEAN CORPUSCULAR HEMOGLOBIN 33.5 pg (27.5-34.5); MEAN CORPUSCULAR HGB CONC 33.5 g/dL (33.2-36.2); MEAN CORPUSCULAR VOLUME 100.1 fL (81-97); MEAN PLATELET VOLUME 8.7 fL (7.4-10.4); PLATELET COUNT 199 x10^3/uL (130-400); RED CELL DISTRIBUTION WIDTH 15.4 % (9.4-14.8)
[2018-06-28 06:30] LABS: ALANINE AMINOTRANSFERASE 66 U/L (12-78); ALBUMIN 2.4 g/dL (3.4-5.0); ANION GAP 6 mmol/L (5-15); CALCIUM 7.2 mg/dL (8.5-10.1); CHLORIDE 102 mmol/L (98-107); CREATININE 1.07 mg/dL (0.7-1.3)
[2018-06-28 06:33] LABS: ALKALINE PHOSPHATASE 100 U/L (45-117); BILIRUBIN,TOTAL 0.9 mg/dL (0.2-1.0); TOTAL PROTEIN 4.9 g/dL (6.4-8.2)
[2018-06-28] MEDS: ALBUTEROL/IPRATROPIUM 2.5MG/0.5MG, 3 ML NPPB SCH ×4 (06:37→19:20)
[2018-06-28] MEDS: BUDESONIDE 0.5 MG/2 ML INHA NPPB SCH ×2 (06:37→19:21)
[2018-06-28 06:45] LABS: BASOPHILS # (AUTO) 0.02 x10^3/uL (0-0.1); BASOPHILS % (AUTO) 0 % (0-1); EOSINOPHILS # (AUTO) 0.23 x10^3/uL (0-0.4); EOSINOPHILS % (AUTO) 2 % (1-7); LYMPHOCYTES # (AUTO) 1.17 x10^3/uL (1-3.4); LYMPHOCYTES % (AUTO) 12 % (22-44); MD SCAN; MONOCYTES % (AUTO) 4 % (2-9); NEUTROPHILS # (AUTO) 8.26 x10^3/uL (1.8-6.8); NEUTROPHILS % (AUTO) 82 % (42-75)
[2018-06-28 06:56] VITALS: BP 110/57
[2018-06-28] MEDS: FOLIC ACID 1 MG TABLET PO SCH (09:48)
[2018-06-28] MEDS: POTASSIUM CHLORIDE 20 MEQ TAB.ER.PRT PO SCH (09:48)
[2018-06-28] MEDS: GUAIFENESIN ER 600 MG TABLET PO SCH ×2 (09:48→22:22)
[2018-06-28] MEDS: CALCIUM/VITAMIN D3 250-125 TABLET PO SCH (09:48)
[2018-06-28] MEDS: ATORVASTATIN 10 MG TABLET PO SCH (09:48)
[2018-06-28] MEDS: APIXABAN 5 MG TABLET PO SCH ×2 (09:48→22:22)
[2018-06-28] MEDS: TAMSULOSIN 0.4 MG CAP.ER.24H PO SCH (11:07)
[2018-06-28 13:47] VITALS: BP 97/48
[2018-06-28 14:55] VITALS: BP 115/58
[2018-06-28] MEDS ORDERED: TAMS-11 PO (15:36)
[2018-06-28] MEDS ORDERED: PRED20TA PO (15:36)
[2018-06-28] MEDS ORDERED: GUAI600T31 PO (15:36)
[2018-06-28] MEDS ORDERED: AMOX1TAB64 PO (15:39)
[2018-06-28] MEDS ORDERED: LINE600T37 PO (15:39)
[2018-06-28] MEDS ORDERED: APIX5TAB PO (15:39)
[2018-06-28] MEDS: SODIUM CHLORIDE 0.9% 1,000 ML IV SCH (16:27)
[2018-06-28 21:32] VITALS: BP 101/52
[2018-06-28] MEDS: TRAZODONE 100MG TABLET PO SCH (22:22)
[2018-06-29] MEDS: LINEZOLID PMX 600MG/300ML 300 ML IV SCH ×2 (01:12→13:30)
[2018-06-29 01:30] VITALS: BP 104/53
[2018-06-29] MEDS: PIPERACILLIN/TAZO/PMX 3.375GM 50 ML IV SCH ×2 (04:24→11:09)
[2018-06-29 08:00] VITALS: BP 108/57
[2018-06-29] MEDS: CALCIUM/VITAMIN D3 250-125 TABLET PO SCH (09:10)
[2018-06-29] MEDS: APIXABAN 5 MG TABLET PO SCH (09:10)
[2018-06-29] MEDS: TAMSULOSIN 0.4 MG CAP.ER.24H PO SCH (09:10)
[2018-06-29] MEDS: POTASSIUM CHLORIDE 20 MEQ TAB.ER.PRT PO SCH (09:10)
[2018-06-29] MEDS: ATORVASTATIN 10 MG TABLET PO SCH (09:10)
[2018-06-29] MEDS: GUAIFENESIN ER 600 MG TABLET PO SCH (09:10)
[2018-06-29] MEDS: FOLIC ACID 1 MG TABLET PO SCH (09:10)
[2018-06-29] MEDS: SODIUM CHLORIDE 0.9% 1,000 ML IV SCH (09:29)
== END 2018-06-29 13:57 | DRG 871 ==
LOC: ED 16:11 → EDIP 18:22 → 4WST 19:58
PROVIDERS: ADMIT Internal Medicine; ATTEND Family Medicine
DX: A41.9 Sepsis, unspecified organism (principal); N17.0 Acute kidney failure with tubular necrosis; J96.21 Acute and chronic respiratory failure with hypoxia; J15.6 Pneumonia due to other Gram-negative bacteria; E43 Unspecified severe protein-calorie malnutrition; I50.33 Acute on chronic diastolic (congestive) heart failure; J15.212 Pneumonia due to Methicillin resistant Staphylococcus aureus; E87.1 Hypo-osmolality and hyponatremia; D68.69 Other thrombophilia; J44.0 Chronic obstructive pulmonary disease with (acute) lower respiratory infection; J44.1 Chronic obstructive pulmonary disease with (acute) exacerbation; Z68.1 Body mass index [BMI] 19.9 or less, adult; K21.9 Gastro-esophageal reflux disease without esophagitis; R73.9 Hyperglycemia, unspecified; S00.03XA Contusion of scalp, initial encounter; S06.0X0A Concussion without loss of consciousness, initial encounter; R74.8 Abnormal levels of other serum enzymes; R74.0 Nonspecific elevation of levels of transaminase and lactic acid dehydrogenase [LDH]; E86.0 Dehydration; E87.6 Hypokalemia; I27.20 Pulmonary hypertension, unspecified; I08.2 Rheumatic disorders of both aortic and tricuspid valves; I48.0 Paroxysmal atrial fibrillation; J84.10 Pulmonary fibrosis, unspecified; E78.5 Hyperlipidemia, unspecified; W18.39XA Other fall on same level, initial encounter; Y93.89 Activity, other specified; Z88.6 Allergy status to analgesic agent; Y92.89 Other specified places as the place of occurrence of the external cause; Y99.8 Other external cause status; Z79.01 Long term (current) use of anticoagulants; Z87.891 Personal history of nicotine dependence; Z99.81 Dependence on supplemental oxygen
CPT/HCPCS: 36415; 36600; 70450; 71045; 71250; 76705; 78582; 80048; 80053; 80076; 81003; 82533; 82803; 83605; 83735; 83880; 84145; 84484; 85025; 85610; 86803; 87040; 87070; 87077; 87147; 87186; 87205; 87340; 87400; 93005; 93306; 94640; 94667; 94668; 99285; G0378; J0456; J0696; J2020; J2543; J3370; J7060; J7608; J7620; J7626; A9540; A9558; C9898; J1940; J2930; J3475; J7030; J7040; J7050; J7512

== ENCOUNTER 2018-07-01 21:04 | Inpatient (IN) | payer MEDICARE, BC ==
[~2018-07-01] VITALS: Ht 157.5 cm; Wt 55.9 kg
[~2018-07-01 21:04] MED LIST changes: +AMOX1TAB64 PO; +APIX5TAB PO; +GUAI600T31 PO; +LINE600T37 PO; +PRED20TA PO; +TAMS-11 PO
--- NOTE | 2018-07-01 21:38 | NUR ---
PT A/O X 4 AND FAMILY AT BEDSIDE. PT RESTING WITH NO DISTRESS AND VSS. PT AWAITING TEST RESULTS.
--- NOTE | 2018-07-01 22:22 | NUR ---
PT PLACED ON OXY MASK AT 10 L. PT SITING UP WITH FAMILY AND REMAINS A/O X 4.
[2018-07-01 22:32] LABS: ALANINE AMINOTRANSFERASE 114 U/L (12-78); ALBUMIN 3.3 g/dL (3.4-5.0); ANION GAP 9 mmol/L (5-15); CALCIUM 8.5 mg/dL (8.5-10.1); CHLORIDE 97 mmol/L (98-107); CREATININE 1.48 mg/dL (0.7-1.3); INTERNATIONAL NORMALIZED RATIO 1.1 (0.93-1.1); PROTHROMBIN TIME 11.6 Seconds (9.6-11.5)
[2018-07-01 22:34] LABS: MEAN CORPUSCULAR HEMOGLOBIN 33.6 pg (27.5-34.5); MEAN CORPUSCULAR HGB CONC 33.7 g/dL (33.2-36.2); MEAN CORPUSCULAR VOLUME 99.7 fL (81-97); MEAN PLATELET VOLUME 9.1 fL (7.4-10.4); PLATELET COUNT 225 x10^3/uL (130-400); RED BLOOD COUNT 4.57 x10^6/uL (4.38-5.82); RED CELL DISTRIBUTION WIDTH 15.2 % (9.4-14.8)
[2018-07-01 22:37] LABS: ALKALINE PHOSPHATASE 137 U/L (45-117); BILIRUBIN,TOTAL 0.9 mg/dL (0.2-1.0); TOTAL PROTEIN 6.8 g/dL (6.4-8.2); TROPONIN I 0.024 ng/mL (0.000-0.045)
[2018-07-01 22:47] LABS: BASOPHILS # (AUTO) 0.03 x10^3/uL (0-0.1); BASOPHILS % (AUTO) 0 % (0-1); EOSINOPHILS % (AUTO) 0 % (1-7); LYMPHOCYTES # (AUTO) 0.29 x10^3/uL (1-3.4); LYMPHOCYTES % (AUTO) 3 % (22-44); MD SCAN; MONOCYTES # (AUTO) 0.24 x10^3/uL (0.2-0.8); MONOCYTES % (AUTO) 2 % (2-9); NEUTROPHILS % (AUTO) 94 % (42-75)
--- NOTE | 2018-07-01 23:20 | NUR ---
PT AWAITNG ADMIT MD. PT ASLEEP WITH VSS AND IN NO DISTRESS AT THIS TIME
[2018-07-01] MEDS ORDERED: ONDANSETRON 2MG/ML, 2ML IVPush PRN (23:30)
[2018-07-02] MEDS ORDERED: ACETAMINOPHEN 325 MG TABLET PO PRN
[2018-07-02] MEDS ORDERED: LIDODERM 5% PATCH TD PRN
[2018-07-02] MEDS ORDERED: DOCUSATE 100 MG CAPSULE PO PRN
[2018-07-02] MEDS ORDERED: ONDANSETRON 4 MG TABLET PO PRN
[2018-07-02] MEDS ORDERED: GUAIFENESIN/DM 200-20MG, 10ML UDC PO PRN
[2018-07-02 00:20] VITALS: BP 164/69
[2018-07-02] MEDS ORDERED: VANCOMYCIN PER PHARMACY MC PRN (00:30)
[2018-07-02] MEDS ORDERED: PHARMACY MAY ADJ FOR RENAL FX MC PRN (00:30)
[2018-07-02] MEDS: TRAZODONE 100MG TABLET PO SCH ×2 (01:18→21:26)
[2018-07-02] MEDS: VANCOMYCIN MC SCH ×2 (04:30→11:04)
[2018-07-02 06:03] LABS: CHOL/HDL RATIO 1.6; LDL/HDL RATIO 0.4 (0.5-3.0)
[2018-07-02] MEDS: BUDESONIDE 0.5 MG/2 ML INHA INH SCH ×2 (08:00→21:00)
[2018-07-02] MEDS: ALBUTEROL/IPRATROPIUM 2.5MG/0.5MG, 3 ML NPPB SCH ×4 (08:00→21:00)
[2018-07-02 08:23] VITALS: BP 137/67
[2018-07-02] MEDS ORDERED: PHARMACOKINETIC MONITORING MC PRN (09:00)
[2018-07-02] MEDS ORDERED: VANCOMYCIN PMX 1GM/200ML 200 ML IVPB SCH (09:00)
[2018-07-02] MEDS ORDERED: TEMPLATE NON-FORMULARY MED. (Budesonide/Formoterol Fumarate (Symbicort 80-4.5 Mcg Inhaler) INH SCH (09:00)
[2018-07-02] MEDS ORDERED: TEMPLATE NON-FORMULARY MED. (Tiotropium Bromide** (Spiriva**) 18 MCG) INH SCH (09:00)
[2018-07-02] MEDS ORDERED: LINEZOLID 600 MG TABLET PO SCH (09:00)
[2018-07-02] MEDS ORDERED: PHARMACOKINETIC CONSULTATION MC ONE (09:00)
[2018-07-02] MEDS: AMOXICILLIN/CLAV 875-125MG TABLET PO SCH ×2 (09:38→20:32)
[2018-07-02] MEDS: FOLIC ACID 1 MG TABLET PO SCH (09:38)
[2018-07-02] MEDS: CALCIUM/VITAMIN D3 250-125 TABLET PO SCH (09:38)
[2018-07-02] MEDS: ATORVASTATIN 10 MG TABLET PO SCH (09:38)
[2018-07-02] MEDS: GUAIFENESIN ER 600 MG TABLET PO SCH ×2 (11:30→20:31)
[2018-07-02 11:31] LABS: BASOPHILS # (AUTO) 0.01 x10^3/uL (0-0.1); BASOPHILS % (AUTO) 0 % (0-1); EOSINOPHILS % (AUTO) 0 % (1-7); LYMPHOCYTES # (AUTO) 1.35 x10^3/uL (1-3.4); LYMPHOCYTES % (AUTO) 12 % (22-44); MD SCAN; MEAN CORPUSCULAR HEMOGLOBIN 33.4 pg (27.5-34.5); MEAN CORPUSCULAR HGB CONC 33.8 g/dL (33.2-36.2); MONOCYTES # (AUTO) 0.33 x10^3/uL (0.2-0.8); MONOCYTES % (AUTO) 3 % (2-9); NEUTROPHILS # (AUTO) 9.28 x10^3/uL (1.8-6.8); NEUTROPHILS % (AUTO) 85 % (42-75); PLATELET COUNT 162 x10^3/uL (130-400); RED BLOOD COUNT 4.23 x10^6/uL (4.38-5.82); RED CELL DISTRIBUTION WIDTH 15.1 % (9.4-14.8)
[2018-07-02 12:00] VITALS: BP 154/71
[2018-07-02 12:03] LABS: CHLORIDE 97 mmol/L (98-107)
[2018-07-02] MEDS: FUROSEMIDE 20 MG/2 ML IV SCH (12:08)
[2018-07-02 12:14] LABS: ALANINE AMINOTRANSFERASE 109 U/L (12-78); ALBUMIN 3.3 g/dL (3.4-5.0); ALKALINE PHOSPHATASE 123 U/L (45-117); ANION GAP 9 mmol/L (5-15); BILIRUBIN,TOTAL 0.9 mg/dL (0.2-1.0); CALCIUM 8.1 mg/dL (8.5-10.1); CREATININE 1.21 mg/dL (0.7-1.3); TOTAL PROTEIN 6.3 g/dL (6.4-8.2)
[2018-07-02 19:48] VITALS: BP 131/61
[2018-07-02] MEDS: APIXABAN 5 MG TABLET PO SCH (20:31)
[2018-07-03 01:28] VITALS: BP 111/53
[2018-07-03 05:52] LABS: BASOPHILS # (AUTO) 0.01 x10^3/uL (0-0.1); BASOPHILS % (AUTO) 0 % (0-1); EOSINOPHILS # (AUTO) 0.01 x10^3/uL (0-0.4); EOSINOPHILS % (AUTO) 0 % (1-7); LYMPHOCYTES # (AUTO) 1.04 x10^3/uL (1-3.4); LYMPHOCYTES % (AUTO) 9 % (22-44); MD NO; MEAN CORPUSCULAR HEMOGLOBIN 33.9 pg (27.5-34.5); MEAN CORPUSCULAR HGB CONC 34.2 g/dL (33.2-36.2); MEAN CORPUSCULAR VOLUME 99.1 fL (81-97); MEAN PLATELET VOLUME 8.6 fL (7.4-10.4); MONOCYTES # (AUTO) 0.25 x10^3/uL (0.2-0.8); MONOCYTES % (AUTO) 2 % (2-9); NEUTROPHILS # (AUTO) 10.58 x10^3/uL (1.8-6.8); NEUTROPHILS % (AUTO) 89 % (42-75); PLATELET COUNT 161 x10^3/uL (130-400); RED BLOOD COUNT 3.67 x10^6/uL (4.38-5.82); RED CELL DISTRIBUTION WIDTH 15.4 % (9.4-14.8)
[2018-07-03 06:08] LABS: CHLORIDE 98 mmol/L (98-107)
[2018-07-03 06:37] LABS: ALANINE AMINOTRANSFERASE 97 U/L (12-78); ALBUMIN 2.6 g/dL (3.4-5.0); ALKALINE PHOSPHATASE 95 U/L (45-117); ANION GAP 7 mmol/L (5-15); CALCIUM 7.5 mg/dL (8.5-10.1); CREATININE 0.98 mg/dL (0.7-1.3)
[2018-07-03 06:53] VITALS: BP 124/58
[2018-07-03] MEDS: BUDESONIDE 0.5 MG/2 ML INHA INH SCH ×2 (06:55→20:24)
[2018-07-03] MEDS: ALBUTEROL/IPRATROPIUM 2.5MG/0.5MG, 3 ML NPPB SCH ×4 (06:55→20:24)
[2018-07-03] MEDS ORDERED: POTASSIUM CHLORIDE 20 MEQ TAB.ER.PRT PO ONE (07:30)
[2018-07-03] MEDS: FUROSEMIDE 20 MG/2 ML IV SCH (08:03)
[2018-07-03] MEDS: ATORVASTATIN 10 MG TABLET PO SCH (08:04)
[2018-07-03] MEDS: CALCIUM/VITAMIN D3 250-125 TABLET PO SCH (08:04)
[2018-07-03] MEDS: FOLIC ACID 1 MG TABLET PO SCH (08:04)
[2018-07-03] MEDS: APIXABAN 5 MG TABLET PO SCH ×2 (08:04→20:47)
[2018-07-03] MEDS: AMOXICILLIN/CLAV 875-125MG TABLET PO SCH ×2 (08:04→20:46)
[2018-07-03] MEDS: GUAIFENESIN ER 600 MG TABLET PO SCH ×2 (08:04→20:47)
[2018-07-03] MEDS ORDERED: OMNIPAQUE 350 MG/ML, 100ML BOTTLE ONE (10:38)
[2018-07-03 12:36] VITALS: BP 113/63
[2018-07-03] MEDS: PANTOPRAZOLE 40 MG IV IVPush SCH (12:47)
[2018-07-03] MEDS: POTASSIUM CHLORIDE 20 MEQ TAB.ER.PRT PO SCH (17:09)
[2018-07-03 20:00] VITALS: BP 103/62
[2018-07-03] MEDS: TRAZODONE 100MG TABLET PO SCH (20:47)
[2018-07-04 02:00] VITALS: BP 92/51
[2018-07-04] MEDS: ALBUTEROL SULFATE 2.5 MG/3 ML HHN PRN ×2 (02:10→05:30)
[2018-07-04] MEDS ORDERED: CLAVULANATE MC SCH (06:00)
[2018-07-04] MEDS ORDERED: AMOXICILLIN MC SCH (06:00)
[2018-07-04] MEDS ORDERED: AMPICILLIN/SULBACTAM 3 GM in SODIUM CHLORIDE 0.9% 100 ML IV SCH (06:00)
[2018-07-04] MEDS ORDERED: AMPICILLIN MC SCH (06:00)
[2018-07-04] MEDS ORDERED: SULBACTAM MC SCH (06:00)
[2018-07-04] MEDS: ALBUTEROL/IPRATROPIUM 2.5MG/0.5MG, 3 ML NPPB SCH ×3 (06:52→15:00)
[2018-07-04 06:59] VITALS: BP 98/47
[2018-07-04] MEDS ORDERED: METRONIDAZOLE PMX 500MG/100ML 100 ML IV SCH (07:00)
[2018-07-04] MEDS: PANTOPRAZOLE 40 MG IV IVPush SCH (08:27)
[2018-07-04] MEDS: FUROSEMIDE 20 MG/2 ML IV SCH (08:28)
[2018-07-04 08:32] LABS: BASOPHILS # (AUTO) 0.01 x10^3/uL (0-0.1); BASOPHILS % (AUTO) 0 % (0-1); EOSINOPHILS # (AUTO) 0.01 x10^3/uL (0-0.4); EOSINOPHILS % (AUTO) 0 % (1-7); LYMPHOCYTES # (AUTO) 0.81 x10^3/uL (1-3.4); LYMPHOCYTES % (AUTO) 8 % (22-44); MD NO; MEAN CORPUSCULAR HEMOGLOBIN 33.1 pg (27.5-34.5); MEAN CORPUSCULAR HGB CONC 33.5 g/dL (33.2-36.2); MEAN CORPUSCULAR VOLUME 98.8 fL (81-97); MEAN PLATELET VOLUME 8.3 fL (7.4-10.4); MONOCYTES # (AUTO) 0.21 x10^3/uL (0.2-0.8); MONOCYTES % (AUTO) 2 % (2-9); NEUTROPHILS # (AUTO) 9.54 x10^3/uL (1.8-6.8); NEUTROPHILS % (AUTO) 90 % (42-75); PLATELET COUNT 120 x10^3/uL (130-400); RED BLOOD COUNT 3.46 x10^6/uL (4.38-5.82); RED CELL DISTRIBUTION WIDTH 15.2 % (9.4-14.8)
[2018-07-04 08:34] LABS: ANION GAP 9 mmol/L (5-15); CALCIUM 7.4 mg/dL (8.5-10.1); CHLORIDE 100 mmol/L (98-107); CREATININE 0.86 mg/dL (0.7-1.3)
[2018-07-04] MEDS: BUDESONIDE 0.5 MG/2 ML INHA INH SCH (09:00)
[2018-07-04] MEDS ORDERED: CEFTRIAXONE PMX 1GM/50ML 50 ML IV SCH (09:30)
[2018-07-04] MEDS ORDERED: FURO-93 PO (11:45)
[2018-07-04] MEDS ORDERED: CEFD300C37 PO (11:45)
[2018-07-04] MEDS ORDERED: METR500T PO (11:45)
[2018-07-04] MEDS ORDERED: IPRA3AMP30 NPPB (11:45)
[2018-07-04] MEDS ORDERED: POTA20TA6 PO (11:45)
[2018-07-04] MEDS ORDERED: PANT40TA3 PO (11:52)
[2018-07-04] MEDS: CALCIUM/VITAMIN D3 250-125 TABLET PO SCH (12:48)
[2018-07-04] MEDS: GUAIFENESIN ER 600 MG TABLET PO SCH (12:48)
[2018-07-04] MEDS: FOLIC ACID 1 MG TABLET PO SCH (12:48)
[2018-07-04] MEDS: POTASSIUM CHLORIDE 20 MEQ TAB.ER.PRT PO SCH (12:48)
[2018-07-04] MEDS: APIXABAN 5 MG TABLET PO SCH (12:48)
[2018-07-04] MEDS: ATORVASTATIN 10 MG TABLET PO SCH (12:48)
[2018-07-04 12:54] VITALS: BP 92/49
== END 2018-07-04 18:18 | DRG 682 ==
LOC: ED 22:06 → EDIP 23:09 → SUATTDRO 23:17 → 4EST 07-02 00:10
PROVIDERS: ADMIT Hospitalist; ATTEND Hospitalist
DX: N17.0 Acute kidney failure with tubular necrosis (principal); J69.0 Pneumonitis due to inhalation of food and vomit; J44.0 Chronic obstructive pulmonary disease with (acute) lower respiratory infection; R47.01 Aphasia; E87.1 Hypo-osmolality and hyponatremia; G45.9 Transient cerebral ischemic attack, unspecified; J96.10 Chronic respiratory failure, unspecified whether with hypoxia or hypercapnia; E78.5 Hyperlipidemia, unspecified; I27.20 Pulmonary hypertension, unspecified; I48.91 Unspecified atrial fibrillation; I50.9 Heart failure, unspecified; I73.9 Peripheral vascular disease, unspecified; J44.9 Chronic obstructive pulmonary disease, unspecified; K21.9 Gastro-esophageal reflux disease without esophagitis; M81.0 Age-related osteoporosis without current pathological fracture; Z87.891 Personal history of nicotine dependence; Z99.81 Dependence on supplemental oxygen; Z88.8 Allergy status to other drugs, medicaments and biological substances
CPT/HCPCS: 36415; 36600; 70450; 70551; 71045; 71275; 74230; 80048; 80053; 80061; 82803; 84484; 85025; 85610; 85730; 87070; 87077; 87186; 87205; 93005; 93880; 94640; 99285; G0378; J0295; J0696; J3370; J7613; J7620; J7626; Q9967; C9113; J1940